=== PATIENT | male | born 1965 | race Caucasian/White ===

== ENCOUNTER 2023-05-27 07:38 | Emergency (ER) | payer BC ==
[~2023-05-27] VITALS: Ht 180.3 cm; Wt 97.5 kg
[2023-05-27] MEDS ORDERED: AMLODIPINE BESYLATE 5 MG TABLET ONE (08:13)
[2023-05-27] MEDS ORDERED: ATENOLOL 50 MG TABLET ONE (08:13)
[2023-05-27] MEDS ORDERED: ASPIRIN 81 MG TAB.CHEW ONE (08:14)
[2023-05-27] MEDS: ASPIRIN 81 MG TAB.CHEW PO ONE (08:22)
[2023-05-27] MEDS: AMLODIPINE BESYLATE 5 MG TABLET PO ONE (08:23)
[2023-05-27] MEDS: ATENOLOL 50 MG TABLET PO ONE (08:23)
[2023-05-27 08:25] LABS: BASOPHILS % (AUTO) 0.4 % (0.0-2.0); EOSINOPHILS # (AUTO) 0.2 K/uL (0.0-0.7); EOSINOPHILS % (AUTO) 2.3 % (0.0-6.0); HEMATOCRIT 50 % (39-51); HEMOGLOBIN 17.2 g/dL (13.5-17.5); LYMPHOCYTES # (AUTO) 2.1 K/uL (0.8-4.8); LYMPHOCYTES % (AUTO) 30.6 % (20.0-44.0); MEAN CORPUSCULAR HEMOGLOBIN 31 PG (26.0-33.0); MEAN CORPUSCULAR HGB CONC 35 g/dl (31.0-36.0); MEAN CORPUSCULAR VOLUME 89 fL (80-96); MONOCYTES # (AUTO) 0.6 K/uL (0.1-1.30); MONOCYTES % (AUTO) 8.4 % (2.0-12.0); NEUTROPHILS # (AUTO) 4.1 K/uL (1.8-8.9); NEUTROPHILS % (AUTO) 58.3 % (43.0-81.0); PLATELET COUNT (AUTO) 265 K/uL (150-450); RED BLOOD CELL COUNT(AUTO) 5.56 MIL/uL (4.5-6.0); RED CELL DISTRIBUTION WIDTH 13.4 % (11.5-15.0)
[2023-05-27 08:45] LABS: CALCIUM, SERUM 9.3 mg/dL (8.5-10.1); CARBON DIOXIDE 28 mmol/L (21-32); CHLORIDE 98 mmol/L (98-107); CREATININE 1.2 mg/dL (0.6-1.3); GLUCOSE 109 mg/dL (74-106); POTASSIUM 3.6 mmol/L (3.5-5.1); SODIUM SERUM 135 mmol/L (136-145); UREA NITROGEN, BLOOD 16 mg/dL (7-18)
[2023-05-27 11:37] VITALS: BP 144/91; TEMP 98.5; O2SAT 98
== END 2023-05-27 11:37 | disposition home or self-care (01) ==
LOC: ER 07:45
DX: R07.89 Other chest pain (principal); I10 Essential (primary) hypertension; E78.5 Hyperlipidemia, unspecified
CPT/HCPCS: 36415; 71045-TC; 80048-TC; 84484-TC; 85025-TC